=== PATIENT | female | born 1970 | race Hispanic/Latino ===

== ENCOUNTER 2020-02-28 11:24 | Outpatient (CLI) | payer BC ==
[2020-02-28 12:22] LABS: Hematocrit 39.5 % (30.3-42.9); Hemoglobin 13.6 gm/dl (10.1-14.3); Mean Corpuscular HGB Conc 35 % (30-34); Mean Corpuscular Volume 86 fl (79-97); Platelet Count 274 K/mm3 (140-440); Red Blood Count 4.61 M/mm3 (3.65-5.03); Red Cell Distribution Width 13.7 % (13.2-15.2)
[2020-02-28 12:29] LABS: Alanine Aminotransferase 17 units/L (7-56); Albumin 4.1 g/dL (3.9-5); BUN/Creatinine Ratio 20; Blood Urea Nitrogen 14 mg/dL (7-17); Calcium 9.6 mg/dL (8.4-10.2); Hemolysis Index 2
[2020-02-28 13:09] LABS: RBC Morphology Normal; Total Cells Counted 100
[2020-02-28 13:10] LABS: Large Platelets Few; Platelet Estimate Consistent w Auto
== END 2020-02-28 11:25 | disposition home or self-care (01) ==
LOC: LAB 11:24
PROVIDERS: ATTEND Internal Medicine Hematology & Oncology
DX: D72.829 Elevated white blood cell count, unspecified (principal); D05.91 Unspecified type of carcinoma in situ of right breast
CPT/HCPCS: 36415; 80053; 85007; 85025

== ENCOUNTER 2020-10-03 11:26 | Outpatient (CLI) | payer BC ==
[2020-10-03 14:09] LABS: Hematocrit 40.1 % (30.3-42.9); Hemoglobin 13.5 gm/dl (10.1-14.3); Mean Corpuscular HGB Conc 34 % (30-34); Mean Corpuscular Volume 87 fl (79-97); Platelet Count 288 K/mm3 (140-440); Red Blood Count 4.59 M/mm3 (3.65-5.03); Red Cell Distribution Width 15.7 % (13.2-15.2)
[2020-10-03 14:23] LABS: Alanine Aminotransferase 23 units/L (7-56); Albumin 4.1 g/dL (3.9-5); Blood Urea Nitrogen 10 mg/dL (7-17); Calcium 9.8 mg/dL (8.4-10.2); Hemolysis Index 4; Uric Acid 5.3 mg/dL (3.5-7.6)
[2020-10-03 14:27] LABS: BUN/Creatinine Ratio 17
[2020-10-03 15:15] LABS: Erythrocyte Sedimentation Rate 45 mm/Hr (0-20)
[2020-10-09 12:09] LABS: ANA Screen, IFA Negative (Negative)
== END 2020-10-03 11:27 | disposition home or self-care (01) ==
LOC: LAB 11:26
PROVIDERS: ATTEND Internal Medicine Rheumatology
DX: M06.89 Other specified rheumatoid arthritis, multiple sites (principal)
CPT/HCPCS: 36415; 80053; 82164; 84550; 85027; 85652; 86038; 86140; 86200; 86235; 86431

== ENCOUNTER 2021-04-26 14:33 | Outpatient (CLI) | payer BC ==
[2021-04-26 15:11] LABS: Basophils # (Auto) 0.1 K/mm3 (0.0-0.1); Basophils % (Auto) 0.8 % (0.0-1.8); Eosinophils # (Auto) 0.1 K/mm3 (0.0-0.4); Eosinophils % (Auto) 1.2 % (0.0-4.3); Hematocrit 38.6 % (30.3-42.9); Hemoglobin 13.4 gm/dl (10.1-14.3); Lymphocytes # (Auto) 2.5 K/mm3 (1.2-5.4); Lymphocytes % (Auto) 26.8 % (13.4-35.0); Mean Corpuscular HGB Conc 35 % (30-34); Mean Corpuscular Volume 92 fl (79-97); Monocytes # (Auto) 0.6 K/mm3 (0.0-0.8); Monocytes % (Auto) 6.7 % (0.0-7.3); Platelet Count 267 K/mm3 (140-440); Red Blood Count 4.19 M/mm3 (3.65-5.03); Red Cell Distribution Width 13.8 % (13.2-15.2)
[2021-04-26 15:13] LABS: Alanine Aminotransferase 21 units/L (7-56); Albumin 4.1 g/dL (3.9-5); Blood Urea Nitrogen 13 mg/dL (7-17); Calcium 9.4 mg/dL (8.4-10.2); Hemolysis Index 9
[2021-04-26 15:17] LABS: BUN/Creatinine Ratio 19
[2021-04-26 15:34] LABS: Erythrocyte Sedimentation Rate 8 mm/Hr (0-20)
== END 2021-04-26 14:34 | disposition home or self-care (01) ==
LOC: LAB 14:33
PROVIDERS: ATTEND Internal Medicine Rheumatology
DX: M06.89 Other specified rheumatoid arthritis, multiple sites (principal)
CPT/HCPCS: 36415; 80053; 85025; 85652; 86140

== ENCOUNTER 2021-07-17 10:27 | Outpatient (CLI) | payer BC ==
[2021-07-17 11:09] LABS: Alanine Aminotransferase 29 units/L (7-56); Albumin 3.7 g/dL (3.9-5); BUN/Creatinine Ratio 16; Blood Urea Nitrogen 11 mg/dL (7-17); Hemolysis Index 4
[2021-07-17 12:22] LABS: Erythrocyte Sedimentation Rate 37 mm/Hr (0-20)
[2021-07-17 12:26] LABS: Basophils # (Auto) 0.1 K/mm3 (0.0-0.1); Basophils % (Auto) 0.8 % (0.0-1.8); Eosinophils # (Auto) 0.2 K/mm3 (0.0-0.4); Hematocrit 41.1 % (30.3-42.9); Hemoglobin 13.9 gm/dl (10.1-14.3); Lymphocytes # (Auto) 0.9 K/mm3 (1.2-5.4); Lymphocytes % (Auto) 10.7 % (13.4-35.0); Mean Corpuscular HGB Conc 34 % (30-34); Mean Corpuscular Volume 91 fl (79-97); Monocytes # (Auto) 0.8 K/mm3 (0.0-0.8); Monocytes % (Auto) 9.5 % (0.0-7.3); Platelet Count 232 K/mm3 (140-440); Red Blood Count 4.53 M/mm3 (3.65-5.03); Red Cell Distribution Width 14.6 % (13.2-15.2)
== END 2021-07-17 10:28 | disposition home or self-care (01) ==
LOC: LAB 10:27
PROVIDERS: ATTEND Internal Medicine Rheumatology
DX: M06.89 Other specified rheumatoid arthritis, multiple sites (principal)
CPT/HCPCS: 36415; 80053; 85025; 85652; 86140

== ENCOUNTER 2021-11-11 12:29 | Outpatient (CLI) | payer BC ==
--- NOTE | 2021-11-11 14:59 | Mammography Report ---
RIGHT DIGITAL DIAGNOSTIC MAMMOGRAM WITH CAD CONVENTIONAL, 11/11/2021 RIGHT LIMITED BREAST ULTRASOUND CLINICAL INFORMATION / INDICATION: History of bilateral mastectomies and reconstructions, recent hist ory of right breast pain and swelling Z85.3 TECHNIQUE: Digital right mammographic imaging was performed. Limited ultrasound was performed. This e xamination was interpreted with the benefit of Computer-Aided Detection (CAD) analysis. COMPARISON 12/12/2019 FINDINGS: Breast Density: The breasts are almost entirely fatty. MAMMOGRAPHIC FINDINGS: Interval right mastectomy changes with reconstruction and implant are seen. No suspicious lesions are noted. ULTRASOUND FINDINGS: Targeted ultrasound evaluation was performed of the area of interest. Implant is noted. Evaluation of the area of patient complaint of pain and generalized swelling shows 3 hypoecho ic areas within the breast tissue in the 9:00 to 11:00 region. At 9:00 an ovoid 8 x 4 x 3 mm cyst is seen with mild internal echogenicity more at one end of the lesion but without flow or obvious shadow ing. I believe the internal echogenicity is more likely clot debris at this site than true wall thick ening or a nodule. At 10:00 a 12 x 11 x 8 mm cyst is seen without vascularity or or shadowing. This also appears to have peripheral focal internal echogenicity but this is more suspicious for wall thickening and the small er lesion just mentioned. However, probably this is clot and debris rather than true wall thickening. In the 11:00 position a minimal slightly ovoid 4 mm hypoechoic area is seen without vascularity or sh adowing with moderate internal hypoechogenicity. IMPRESSION: In the general area of patient's complaint there are 3 small lesions as above. The sm[address] st 2 are probably complicated cysts. The largest lesion I suspect is a complicated cysts though there is some chance this represents a cyst with focal wall thickening. This cyst is less than 2 mm from t he implant which would raise the risk of implant rupture on biopsy. Considering this, it may be reaso nable to follow this closely with ultrasound with additional sonography in 3 months. Another alternat isaac would be MR to see if there is abnormal enhancement in these areas. Follow up recommendation: As above BI-RADS Category 3: PROBABLY BENIGN. Followup in 3 months. A "normal" or negative report should not discourage follow up or biopsy of a clinically significant f inding. A written summary of these findings will be mailed to the patient. The patient will be entered into a mammography reporting system which will generate a reminder letter for the patient's next appointmen t at the appropriate interval. According to the [employer], yearly mammograms are recommended starting at age 40 and continuing as long as a woman is in good health. Breast MRI is recommended for women with an jeni roximately 20-25% or greater lifetime risk of breast cancer, including women with a strong family his tory of breast or ovarian cancer and women who have been treated for Hodgkin's disease. Signer Name: Wili Eisenberg MD Signed: 11/11/2021 2:54 PM Workstation Name: [id number]
== END 2021-11-11 12:30 | disposition home or self-care (01) ==
LOC: US 12:29
PROVIDERS: ATTEND Surgery
DX: N60.01 Solitary cyst of right breast (principal); Z85.3 Personal history of malignant neoplasm of breast
CPT/HCPCS: 77066